=== PATIENT | male | born 1960 | race African-American/Black ===

== ENCOUNTER 2023-05-21 10:04 | Emergency (ER) | payer OTHER ==
[~2023-05-21] VITALS: Ht 170.2 cm; Wt 71.0 kg
[2023-05-21 10:07] VITALS: BP 137/72; PULSE 87; RESP 18; TEMP 98.1; O2SAT 98
[2023-05-21] MEDS ORDERED: IBUP-2029 MT (10:32)
[2023-05-21] MEDS ORDERED: METH-653 MT (10:32)
== END 2023-05-21 12:33 | disposition home or self-care (01) ==
LOC: ER 10:04
DX: S00.511A Abrasion of lip, initial encounter (principal); S09.90XA Unspecified injury of head, initial encounter; Z88.2 Allergy status to sulfonamides; V49.9XXA Car occupant (driver) (passenger) injured in unspecified traffic accident, initial encounter; Y93.89 Activity, other specified; Y92.89 Other specified places as the place of occurrence of the external cause; Y99.8 Other external cause status
CPT/HCPCS: 99283